=== PATIENT | male | born 1980 | race Two or more races ===

== ENCOUNTER 2018-06-27 16:38 | Emergency (ER) | payer SELFPAY ==
[~2018-06-27] VITALS: Ht 160 cm; Wt 89.0 kg
[2018-06-27 16:40] VITALS: BP 137/80
[2018-06-27] MEDS ORDERED: PENI500T PO (17:15)
[2018-06-27] MEDS ORDERED: TRAM-48 PO (17:15)
--- NOTE | 2018-06-27 17:16 | PHYS DOC ---
Past History Past Medical History: No Pertinent History Past Surgical History: No Surgical History Alcohol Use: None Drug Use: None Adult General Chief Complaint Chief Complaint: DENTAL PROBLEM HPI HPI Patient is a 38 year old male who presents with complaining of dental pain for 2 weeks. Patient is American speaking and brought her friend as a director of nurses registry. Patient complaining of left upper jaw and tooth pain for 2 weeks that getting worse gradually. Patient has appointment with dental school in one month. Patient denies fever and chills, nausea and vomiting, smoking. Patient rated his pain 10 over 10 even he looks comfortable. Review of Systems Review of Systems Constitutional: Denies fever or chills [] Eyes: Denies change in visual acuity, redness, or eye pain [] HENT: Denies nasal congestion or sore throat [] Respiratory: Denies cough or shortness of breath [] Cardiovascular: No additional information not addressed in HPI [] GI: Denies abdominal pain, nausea, vomiting, bloody stools or diarrhea [] : Denies dysuria or hematuria [] Musculoskeletal: Denies back pain or joint pain [] Integument: Denies rash or skin lesions [] Neurologic: Denies headache, focal weakness or sensory changes [] Endocrine: Denies polyuria or polydipsia [] All other systems were reviewed and found to be within normal limits, except as documented in this note. Current Medications Current Medications Current Medications Medications (Trade) Dose Ordered Sig/[place] Start Time Stop Time Status Last Admin Dose Admin Tramadol HCl (Ultram) 50 mg 1X ONCE 06/27/18 17:15 06/27/18 17:16 UNV Physical Exam Physical Exam Constitutional: Well developed, well nourished, mild distress, non-toxic appearance. [] HENT: Normocephalic, atraumatic, bilateral external ears normal, oropharynx moist,tooth#16 with tenderness and mild edema without abscess no oral exudates, nose normal. [] Eyes: PERRLA, EOMI, conjunctiva normal, no discharge. [] Neck: Normal range of motion, no tenderness, supple, no stridor. [] Cardiovascular:Heart rate regular rhythm, no murmur [] Lungs & Thorax: Bilateral breath sounds clear to auscultation [] Neurologic: Alert and oriented X 3, normal motor function, normal sensory function, no focal deficits noted. [] Psychologic: Affect normal, judgement normal, mood normal. [] Current Patient Data Vital Signs Vital Signs Date Time Temp Pulse Resp B/P (MAP) Pulse Ox O2 Delivery O2 Flow Rate FiO2 06/27/18 16:40 98.2 87 20 95 Room Air EKG EKG [] Radiology/Procedures Radiology/Procedures [] Course & Med Decision Making Course & Med Decision Making discharge: I've spoken with the patient and/or caregivers. I've explained the patient's condition, diagnosis and treatment plan based on information available to me at this time. I've answered the patient's and/or caregivers questions and addressed any concerns. The patient and/or caregivers have a good understanding the patient's diagnosis, condition and treatment plan as can be expected at this point. Vital signs have been stabilized. The patient's condition is stable for discharge from the emergency department. The patient will pursue further outpatient evaluation with her primary care provider or other designated consulting physician as outlined in the discharge instructions. Patient and/or caregivers are agreeable to this plan of care and follow-up instructions have been explained in detail. The patient and/or caregivers have received these instructions in written format and expressed understanding of these discharge instructions. The patient and her caregivers are aware that if any significant change in condition or worsening of symptoms should prompt him to immediately return to this of the closest emergency department. If an emergent department is not readily available I would encourage him to call 911. Michelle Disclaimer Dragon Disclaimer This electronic medical record was generated, in whole or in part, using a voice recognition dictation system. Departure Departure: Impression: Primary Impression: Dentalgia Additional Impression: Dental caries Disposition: HOME, SELF-CARE (at 1715) Condition: STABLE Referrals: PCP,NO (PCP) Patient Instructions: Dental Caries, Toothache-Brief Additional Instructions: Follow-up with your dentist appointment Follow-up with your primary care physician in 3-5 days Return to ER if not getting better Scripts Tramadol Hcl (ULTRAM) 50 Mg Tablet 50 MG PO PRN Q6HRS PRN for PAIN, #20 TAB Prov: JALEN SANTOS MD 06/27/18 Penicillin V Potassium (PENICILLIN V POTASSIUM) 500 Mg Tablet 1 TAB PO QID for Infection, #40 TAB Prov: JALEN SANTOS MD 06/27/18 Problem Qualifiers JALEN SANTOS MD Jun 27, 2018 17:16
[2018-06-27] MEDS ORDERED: traMADol 50 MG TABLET PO ONE (17:30)
== END 2018-06-27 17:28 | disposition home or self-care (01) ==
LOC: ER 16:38
DX: K02.9 Dental caries, unspecified (principal)
CPT/HCPCS: 99283